=== PATIENT | male | born 2005 | race Two or more races ===

== ENCOUNTER 2024-08-06 02:22 | Emergency (ER) | payer MEDICAID ==
[~2024-08-06] VITALS: Ht 167.6 cm; Wt 110.9 kg
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
[2024-08-06] MEDS: HYDROcodone-ACET 5/325MG TAB PO ONE (03:34)
[2024-08-06] MEDS ORDERED: IBUP-1456 PO (03:36)
[2024-08-06] MEDS: IBUPROFEN 600 MG TAB PO ONE (03:46)
[2024-08-06 03:47] VITALS: BP 108/69; PULSE 138; RESP 18; TEMP 98.2; O2SAT 97
== END 2024-08-06 04:07 | disposition home or self-care (01) ==
LOC: ER 02:22
DX: S62.396A Other fracture of fifth metacarpal bone, right hand, initial encounter for closed fracture (principal); Z88.1 Allergy status to other antibiotic agents; W22.01XA Walked into wall, initial encounter; Y93.89 Activity, other specified; Y92.89 Other specified places as the place of occurrence of the external cause; Y99.8 Other external cause status
CPT/HCPCS: 29125; 73130